=== PATIENT | female | born 1970 | race Caucasian/White ===

== ENCOUNTER 2025-02-08 11:28 | Day surgery (SDC) | payer OTHER ==
[2025-02-06 13:09] VITALS: BMI 34.0
[~2025-02-08 11:28] MED LIST: ALPRAZolam 0.25 MG TAB PO PRN; ALPRAZolam 0.5 MG TAB PO PRN; HEPARIN SODIUM,PORCINE (1 ML) 2,500 UNIT in SODIUM CHLORIDE 0.9% 250 ML IRRIGATION PRN; HEPARIN SODIUM,PORCINE 10,000 UNIT in SODIUM CHLORIDE 0.9% 1,000 ML IRRIGATION PRN; NITROGLYCERIN SL TABS 0.4 MG TAB SUBLINGUAL PRN
[2025-02-08] MEDS: IV FLUID CONTINUATION 1,000 ML IV ONE (11:46)
[2025-02-08] MEDS: SODIUM CHLORIDE 0.9% 1,000 ML in EMPTY BAG 1 BAG IV SCH (12:24)
[2025-02-08] MEDS: ASPIRIN 325 MG TAB PO STA (12:24)
[2025-02-08 12:28] LABS: Basophils # (A) 0.03 10*3/uL (0.00-0.10); Basophils % (A) 0.3 %; HCT 45.9 % (37.2-46.3); HGB 15.8 g/dL (12.0-15.0); Lymphocytes # (A) 0.94 10*3/uL (0.90-5.00); Lymphocytes % (A) 9.6 %; MCH 31.7 pg (27.0-32.0); MCHC 34.4 g/dL (32.0-37.0); Mean Platelet Volume 9.9 fL (9.5-12.2); Neutrophils # (A) 8.61 10*3/uL (1.80-7.70); Neutrophils % (A) 87.7 %; Platelet Count 295 10*3/uL (140-440); RBC 4.99 10*6/uL (4.10-5.20); RDW 12.5 % (11.5-14.5); WBC 9.82 10*3/uL (4.50-10.00)
[2025-02-08 12:41] LABS: African American GFR (CKD) >90 (>60 ml/min/1.73 sqM); Anion Gap 12 mmol/L; Blood Urea Nitrogen 19 mg/dL (7-17); Calcium 10.3 mg/dL (8.4-10.2); Carbon Dioxide 27 mmol/L (22-30); Chloride 101 mmol/L (98-107); Glucose 122 mg/dL (74-99); Non-African American GFR(CKD) >90 (>60 ml/min/1.73 sqM); Sodium 140 mmol/L (137-145)
[2025-02-08] MEDS: MIDAZOLAM 2 MG/2 ML VIAL IVP ONE (13:49)
[2025-02-08] MEDS: fentaNYL (PF) 50 MCG/1 ML VIAL IVP ONE (13:49)
[2025-02-08] MEDS: ceFAZolin 2 GM in DEXTROSE 5% IN WATER 50 ML IVPB ONE (13:50)
[2025-02-08] MEDS: LIDOCAINE 1% INJ 10MG/ML (30 ML VIAL-PF) SQ ONE (14:00)
[2025-02-08] MEDS: HEPARIN SODIUM 1,000 UN/ML (10ML VL) IVP ONE (14:05)
--- NOTE | 2025-02-08 14:40 | P.PCN ---
Description of Procedure: TRANSCATHETER CLOSURE OF INTERATRIAL COMMUNICATION PROCEDURES PERFORMED: 1. Closure of secundum ASD via a right femoral venous percutaneous approach using a 14mm ASO Amplatzer Occluder device. 2. Intracardiac echocardiography using an 8-[place] AcuNav ultrasound catheter 3. RFV access under direct U/S visualization x 2 OPERATORS: 1. Roel Delarosa DO interventional cardiology INDICATIONS: Right sided cardiac chamber enlargment. ASD with color flow across inter-atrial septum and positive bubble study by SATNAM. SEDATION: Under my direct supervision the patient was administered moderate conscious sedation with Versed and Fentanyl for a total of 32 minutes. PRPOCEDURE SUMMARY: Prior to sedation, the risks, benefits and alternatives of the procedure were discussed with the patient in detail and all questions were answered to the patient's satisfaction. Both verbal and written consents were obtained. The patient was transported to the cardiac catheterization suite and prepped and draped in the usual sterile fashion for access to the right groin. The patient received conscious sedation in the form of Versed and Fentanyl intravenously. 2% lidocaine was infused into the right groin for local anesthesia. Then, under direct ultrasound visualization, right femoral vein was accessed using micropuncture technique and two 8[place] 11 cm sheaths were placed into the right femoral vein. The 8-[place] AcuNav ICE ultrasound catheter was then advanced through into the right atrium where intracardiac echocardiography was performed. PRE PROCEDURE ULTRASOUND: This demonstrated no evidence of pericardial effusion. It demonstrated normal appearing aortic and mitral valves. Overall the left ventricular function and chamber size appeared within normal limits. The LV function appeared preserved with no significant wall motion abnormalities. There was color flow visualized across the inter-atrial septum with ICE. The tricuspid valve appeared normal and the RV appeared normal in size. The visualized portions of the left atrium and left atrial appendage demonstrated no significant abnormalities. There was a 1 .0-1.1cm secundum ASD After images were obtained with the ICE catheter, a 6-[place] multipurpose catheter was inserted into the RFV and was used to cross the septum into the left atrium. Heparin was given to keep ACT > 200-250. The catheter was then advanced into the LA and placed in the L superior pulmonary vein. A 0.035 260 cm Lino wire was then advanced via the catheter and placed in the vein. The catheter was then removed and the 8[place] sheath was also removed over the wire. This was exchanged for a 9 [place] 38-hpoduv-fohy delivery sheath with introducer. This was advanced to the septal defect where the sheath was then advanced across the defect over the Lino wire. The introducer was removed and blood was drawn. The Amplatzer wire was then removed. A 14mm Amplatzer ASO occluder device was then opened, prepped and then loaded into the sheath. Under fluoroscopy and ultrasound guidance, the Amplatzer occluder was advanced through the edge of the sheath. The left atrial side was deployed and was pulled back to the interatrial septum and the right atrial side was deployed. With the device still captured, intracardiac echocardiography was performed demonstrating good capture on all 6 rims with no impingement on valvular function. The delivery system was then released and removed. The final intracardiac echocardiographic images were again once obtained. POST DELIVERY INTRACARDIAC ECHOCARDIOGRAPHIC IMAGES: This demonstrated again no evidence of pericardial effusion. All 6 rims were visualized and demonstrated adequate purchase and the device in stable position. There was no further evidence of interatrial communication by color flow Doppler. The aortic and mitral valves appeared to be functioning appropriately with no impingement of flow. Again overall the left ventricular function appeared within normal limits and again, no effusion was noted. At this point, 8[place] ICE catheter and the torque-view sheath was removed A Z stitch was placed to achieve hemostasis. The patient was transferred to the [facility] in stable condition. COMPLICATIONS: None. FINAL IMPRESSIONS: Successful closure of a secundum ASD with a 14mm Amplatzer ASO occluder device. No evidence of complication, arrhythmia or other noted. RECOMMENDATIONS: A limited transthoracic echocardiogram will be obtained in the morning. The patient will be transferred to the floor, monitoring overnight. Will plan for discharge in the morning. Aspirin daily, Plavix 75 mg daily, followup in the clinic in approximately 1 week as previously scheduled. Antibiotic prophylaxis for any procedure for one year.
[2025-02-08] MEDS: CLOPIDOGREL 75 MG TAB PO ONE (14:43)
[2025-02-08] MEDS ORDERED: ALBUTEROL NEBULIZED 2.5 MG/3 ML INHALATION PRN (16:27)
[2025-02-08] MEDS ORDERED: LOPERAMIDE 2 MG CAP PO PRN (16:27)
[2025-02-08] MEDS: DIPHENOX-ATROP 2.5-0.025 MG 1 EACH TAB PO SCH (18:26)
[2025-02-08] MEDS: METOPROLOL TARTRATE 25 MG TAB PO SCH (19:42)
[2025-02-08] MEDS: SERTRALINE 50 MG TAB PO SCH (19:42)
[2025-02-08] MEDS: lisinopriL 5 MG TAB PO SCH (19:42)
[2025-02-08] MEDS: ACYCLOVIR 200 MG CAP PO SCH (19:43)
--- NOTE | 2025-02-09 07:44 | XR ---
EXAMINATION TYPE: XR chest 2V DATE OF EXAM: 02/09/2025 6:25 AM COMPARISON: None CLINICAL INDICATION: Female, 55 years old with history of ASD/PFO placement, , TECHNIQUE: PA and lateral views FINDINGS: The heart is borderline enlarged. PFO closure device noted. Aorta within normal limits. Interstitial/ vascular prominence without consolidation or pleural effusion. IMPRESSION: 1. Borderline heart size with PFO closure device. 2. Correlate for mild pulmonary vascular congestion. [facility], Workstation: [id number], 02/09/2025 7:42 AM
[2025-02-09] MEDS: CHOLECALCIFEROL 25 MCG (1000 IU) TABLET PO SCH (09:48)
[2025-02-09] MEDS: ASPIRIN 325 MG TAB PO SCH (09:48)
[2025-02-09] MEDS: CLOPIDOGREL 75 MG TAB PO SCH (09:48)
[2025-02-09] MEDS: hydroCHLOROthiazide 12.5 MG CAP PO SCH (09:49)
[2025-02-09 11:34] VITALS: BP 113/73; PULSE 65; RESP 14; TEMP 98
--- NOTE | 2025-02-09 13:14 | CA ---
Transthoracic Echo Report Name: Lisa Hunt Age: 55 Gender: F : 1970 Exam Date: 02/09/2025 07:39 Exam Location: [facility] Ht (in): 66 Wt (lb): 202 Ordering Physician: Roel Delarosa DO ([email or web address]) Attending/Referring Phys: Medical Billing Supervisor Natacha Okeefe RDCS Procedure CPT: Indications: Post ASD/PFO Insertion Cardiac Hx: Technical Quality: Good Contrast 1: Total Dose (mL): Contrast 2: Total Dose (mL): MEASUREMENTS (Male / Female) Normal Values 2D ECHO LV Diastolic Diameter PLAX 4.2 cm 4.2 - 5.9 / 3.9 - 5.3 cm LV Systolic Diameter PLAX 3.5 cm IVS Diastolic Thickness 1.3 cm 0.6 - 1.0 / 0.6 - 0.9 cm LVPW Diastolic Thickness 1.2 cm 0.6 - 1.0 / 0.6 - 0.9 cm LV Relative Wall Thickness 0.6 RV Internal Dim ED PLAX 4.3 cm LA Systolic Diameter LX 4.0 cm 3.0 - 4.0 / 2.7 - 3.8 cm LV Diastolic Volume MOD BP 86.1 cm??? 67 - 155 / 56 - 104 cm??? LV Systolic Volume MOD BP 35.5 cm??? 22 - 58 / 19 - 49 cm??? LV Ejection Fraction MOD BP 58.8 % >= 55 % LV Cardiac Index MOD BP 1712.6 cm???/min???m??? LV Diastolic Volume MOD 4C 92.0 cm??? LV Systolic Volume MOD 4C 31.3 cm??? LV Ejection Fraction MOD 4C 66.0 % LV Cardiac Index MOD 4C 2053.2 cm???/min???m??? LV Diastolic Length 4C 6.6 cm LV Systolic Length 4C 4.7 cm LV Diastolic Volume MOD 2C 73.9 cm??? LV Systolic Volume MOD 2C 36.0 cm??? LV Ejection Fraction MOD 2C 51.3 % LV Cardiac Index MOD 2C 1284.2 cm???/min???m??? LV Diastolic Length 2C 6.0 cm LV Systolic Length 2C 5.5 cm LA Volume 68.8 cm??? 18 - 58 / 22 - 52 cm??? LA Volume Index 32.8 cm???/m??? 16 - 28 cm???/m??? M-MODE Aortic Root Diameter MM 2.9 cm AV Cusp Separation MM 2.1 cm DOPPLER AV Peak Velocity 143.9 cm/s AV Peak Gradient 8.3 mmHg MV Area PHT 2.7 cm??? Mitral E Point Velocity 97.7 cm/s Mitral A Point Velocity 43.8 cm/s Mitral E to A Ratio 2.2 MV Deceleration Time 281.7 ms TR Peak Velocity 334.3 cm/s TR Peak Gradient 44.7 mmHg Right Ventricular Systolic Press 48.7 mmHg FINDINGS Left Ventricle Left ventricular ejection fraction is estimated at 55-60 %. Left ventricular cavity size normal. Moderately increased septal wall thickness. Mildly increased posterior wall thickness. No obvious regional wall motion abnormalities. Right Ventricle Moderate right ventricular dilatation. Moderate pulmonary hypertension. Right ventricular systolic pressure estimated at 46 mm hg. Right Atrium Normal right atrial size. No right atrial thrombus or mass seen. PFO closure device in place. No shunt noted Left Atrium Mildly increased left atrial diameter. Mildly increased left atrial volume. Mildly increased left atrial area. Mitral Valve Structurally normal mitral valve. No evidence for mitral valve prolapse. No mitral stenosis. Trace to mild mitral regurgitation. Aortic Valve Trileaflet aortic valve. No aortic stenosis. No aortic regurgitation. Tricuspid Valve Structurally normal tricuspid valve. Moderate tricuspid regurgitation. Pulmonic Valve Pulmonic valve not well visualized. No pulmonic regurgitation. Pericardium No pericardial effusion. Aorta Normal size aortic root and proximal ascending aorta. CONCLUSIONS LVEF 55 to 60% Mild concentric LVH No obvious regional wall motion abnormality Moderate RV dilatation, moderate pulmonary hypertension with RVSP 48 mmHg PFO closure device in place Mild left atrial dilatation Moderate tricuspid regurgitation No pericardial effusion Previewed by: Dr Glynn Sorto (Electronically Signed) Final Date: 09 February 2025 13:13
--- NOTE | 2025-02-09 13:15 | P.DS ---
Providers Attending physician: Roel Delarosa DO Primary care physician: Zayra Gregory, [facility] Hospital Course: This is a 55-year-old female who underwent successful closure of a secundum ASD with a 14mm Amplatzer ASO occluder device on 02/08/[address] Delarosa. Patient is doing well post procedure with no immediate complications. Patient without complaints of chest pain or shortness of breath. Echocardiogram revealed ejection fraction 55 to 60%, moderate concentric LVH, no obvious regional wall motion abnormalities, moderate RV dilation, moderate pulm hypertension with RVSP 48 mmHg, PFO closure device in place, mild left atrial dilation, moderate tricuspid regurgitation. Patient was deemed stable for discharge home today. Please see EMR for further hospital course details. Discharge diagnoses ASD, status post Successful closure of a secundum ASD with a 14mm Amplatzer ASO occluder device Nurse practitioner note has been reviewed by physician. Signing provider agrees with the documented findings, assessment, and plan of care documented by HOTEL [employer] MOTEL MANAGER as a scribe. Plan - Discharge Summary Discharge Rx Participant: Yes New Discharge Prescriptions: New Clopidogrel [Plavix] 75 mg PO DAILY #30 tab Aspirin 325 mg PO DAILY #30 tab Continue Metoprolol Tartrate 25 mg PO BID Albuterol Inhaler [Ventolin Hfa Inhaler] 1 - 2 puff INHALATION Q6H PRN PRN Reason: Shortness Of Breath Loperamide HCl [Loperamide] 4 mg PO QID PRN PRN Reason: Diarrhea Cholecalciferol [Vitamin D3 (25 Mcg = 1000 Iu)] 25 mcg PO DAILY lisinopriL [Zestril] 5 mg PO HS hydroCHLOROthiazide 12.5 mg PO DAILY Diphenoxylate HCl/Atropine [Diphenoxylate HCl/Atropine 2.5-0.025] 2 tab PO QID Acyclovir [Zovirax] 400 mg PO BID Sertraline [Zoloft] 50 mg PO BID Discharge Medication List Acyclovir [Zovirax] 400 mg PO BID 12/02/24 [History] Albuterol Inhaler [Ventolin Hfa Inhaler] 1 - 2 puff INHALATION Q6H PRN 12/02/24 [History] Cholecalciferol [Vitamin D3 (25 Mcg = 1000 Iu)] 25 mcg PO DAILY 12/02/24 [History] Diphenoxylate HCl/Atropine [Diphenoxylate HCl/Atropine 2.5-0.025] 2 tab PO QID 12/02/24 [History] Loperamide HCl [Loperamide] 4 mg PO QID PRN 12/02/24 [History] Metoprolol Tartrate 25 mg PO BID 12/02/24 [History] Sertraline [Zoloft] 50 mg PO BID 12/02/24 [History] hydroCHLOROthiazide 12.5 mg PO DAILY 12/02/24 [History] lisinopriL [Zestril] 5 mg PO HS 12/02/24 [History] Aspirin 325 mg PO DAILY #30 tab 02/09/25 [Rx] Clopidogrel [Plavix] 75 mg PO DAILY #30 tab 02/09/25 [Rx] Follow up Appointment(s)/Referral(s): Roel Delarosa DO [STAFF PHYSICIAN] - 02/15/25 9:30 am (ONE WEEK FOLLOW UP APPOINTMENT: 02/15/2025 AT 0930. ONE MONTH FOLLOW UP APPOINTMENT: 03/10/25 AT 0945. SIX MONTH FOLLOW UP APPOINTMENT: 08/10/25 AT 0930. )
== END 2025-02-09 14:17 | disposition home or self-care (01) ==
LOC: CATHCVL 11:28 → 3SCARD 14:26 → CATHCVL 02-09 14:17
PROVIDERS: ATTEND Internal Medicine
DX: I27.20 Pulmonary hypertension, unspecified (principal); I73.9 Peripheral vascular disease, unspecified; R94.31 Abnormal electrocardiogram [ECG] [EKG]; I10 Essential (primary) hypertension; E78.2 Mixed hyperlipidemia; Q21.12 Patent foramen ovale; Q21.11 Secundum atrial septal defect; Z82.49 Family history of ischemic heart disease and other diseases of the circulatory system; Z88.5 Allergy status to narcotic agent; Z79.899 Other long term (current) drug therapy
CPT/HCPCS: 93306; 86900; 86901; 80048; 85025; 86850; 71046; 99152; 99153; C1817; C1769 ×2; C1894; C1759; J2250; J0690; J2003; J1644; J3010; 76937; 93580; 93662